=== PATIENT | male | born 1965 ===

== ENCOUNTER 2017-10-16 08:32 | Emergency (ER) | payer SELFPAY ==
[2017-10-16 08:49] VITALS: BP 140/85
--- NOTE | 2017-10-16 09:00 | UC ---
Truncal Trauma HPI - HPI Summary HPI Summary: 52 yo M with thoracic and rt rib pain s/p fall on 10/10/17. He was loading wood and fell onto the wood pile. No LOC. No weakness, numbness. Initially, everything hurt. Over time primarily the rt rib and thoracic back pain continue. Positive splinting. No SOB. Is a smoker. No fever. - History Of Current Complaint Chief Complaint: UCTrauma Stated Complaint: SP FALL/RT SIDE BACK Time Seen by Provider: 10/16/17 08:46 Pain Intensity: 2 - Allergies/Home Medications Allergies/Adverse Reactions: Allergies Allergy/AdvReac Type Severity Reaction Status Date / Time tdap Allergy Unknown Unknown Uncoded 10/16/17 08:49 Reaction Details Home Medications: Home Medications NK [No Home Medications Reported] 10/16/17 [History Confirmed 10/16/17] PMH/Surg Hx/FS Hx/Imm Hx Previously Healthy: Yes - Surgical History Surgical History: Yes Surgery Procedure, Year, and Place: Nodular fastitious - Social History Alcohol Use: Daily Substance Use Type: None Smoking Status (MU): Heavy Every Day Tobacco Smoker Review of Systems Constitutional: Negative Skin: Negative Eyes: Negative ENT: Negative Respiratory: Other - splinting rt chest pain Cardiovascular: Negative Gastrointestinal: Negative Genitourinary: Negative Motor: Negative Neurovascular: Negative Musculoskeletal: Other: - rt rib pain Neurological: Negative Psychological: Negative Is Patient Immunocompromised?: No All Other Systems Reviewed And Are Negative: Yes Physical Exam Triage Information Reviewed: Yes Appearance: Well-Appearing, Other: - Mild pain distress with deep breaths Vital Signs: Initial Vital Signs Temp 98.9 F 10/16/17 08:43 Pulse 67 10/16/17 08:43 Resp 16 10/16/17 08:43 BP 140/85 10/16/17 08:43 Pulse Ox 100 10/16/17 08:43 Vital Signs Reviewed: Yes Eye Exam: Normal Neck exam: Normal Neck: Positive: Supple, Nontender Respiratory: Positive: Lungs clear, Normal breath sounds, Other: - tender to palpation to the right of mid thoracic spine and laterally on the ribs Cardiovascular Exam: Normal Cardiovascular: Positive: RRR Abdominal Exam: Normal Abdomen Description: Positive: Nontender Bowel Sounds: Positive: Present Musculoskeletal Exam: Normal Neurological Exam: Normal Psychological Exam: Normal Skin Exam: Normal Truncal Trauma Course/Dx - Course Course Of Treatment: Discussed results with the patient. He declines pain med Rx. He will use ibuprofen. F/U PMD; recheck sooner if worse. - Differential Dx/Diagnosis Provider Diagnoses: right rib fractures Discharge - Sign-Out/Discharge Documenting (check all that apply): Patient Departure - Discharge Plan Condition: Stable Disposition: HOME Patient Education Materials: Rib Fracture (ED) Forms: *Work Release Referrals: [facility] [Outside] Additional Instructions: FOLLOW UP WITH YOUR DOCTOR. USE THE INCENTIVE SPIROMETER EVERY 4 HOURS WHILE AWAKE TO HELP AVOID RESPIRATORY INFECTION. GET RECHECKED FOR ANY WORSENING OF YOUR CONDITION; PAIN, SHORTNESS OF BREATH, YOU FEEL ILL OR QUESTIONS OR CONCERNS. - Billing Disposition and Condition Condition: STABLE Disposition: Home
--- NOTE | 2017-10-16 09:20 | RAD ---
Indication: Right rib pain. 4 views of the right ribs and dual energy PA views of the chest are reviewed. There are fractures of the right ninth and 10th rib posteriorly. No pneumothorax is noted. Minimal displacement is noted. IMPRESSION: Fractures of the right ninth and 10th ribs with minimal displacement. No pneumothorax is noted.
--- NOTE | 2017-10-16 09:21 | RAD ---
Indication: Mid thoracic spine pain post fall. Comparison: No relevant prior exams available on the [facility] for [place]. Technique: AP and lateral views thoracic spine. Report: Normal thoracic spine alignment. No thoracic spine fracture evident. Multilevel very mild thoracic degenerative spondylosis. Unremarkable paraspinal soft tissue contours. IMPRESSION: #. No radiographic evidence for traumatic thoracic spine injury.
== END 2017-10-16 09:50 | disposition home or self-care (01) ==
LOC: UCCORT 08:32
DX: S22.41XA Multiple fractures of ribs, right side, initial encounter for closed fracture (principal); M54.6 Pain in thoracic spine; Y93.89 Activity, other specified; Y92.9 Unspecified place or not applicable; Z72.0 Tobacco use; W01.198A Fall on same level from slipping, tripping and stumbling with subsequent striking against other object, initial encounter
CPT/HCPCS: 72070; 99201; G0463

== ENCOUNTER 2021-06-29 13:59 | Inpatient (IN) ==
[~2021-06-29 13:59] MED LIST: Buffered Lidocaine 1% SYRIN 1 ml INTRADERM ONE; Lactated Ringers 1000 ml BAG 1,000 ML IV SCH
[2021-06-29] MEDS ORDERED: diPHENhydraMINE 25 mg TAB PO PRN (14:38)
[2021-06-29] MEDS ORDERED: Ondansetron ODT 4 mg TAB 4 MG TAB PO PRN (14:38)
[2021-06-29] MEDS ORDERED: Magnesium Hydroxide LIQ 30 ML UDC PO PRN (14:38)
[2021-06-29] MEDS ORDERED: Lactulose 30 ml UDC PO PRN (14:38)
[2021-06-29] MEDS ORDERED: Ondansetron 4 mg VIAL 2 MG/ML 2 ml VIAL IV PRN (14:38)
[2021-06-29] MEDS ORDERED: diPHENhydraMINE IV 50 MG/ML 1 ml VIAL (BENADRYL) IV PRN (14:38)
[2021-06-29] MEDS ORDERED: Morphine 2 MG/ML SYRINGE IV PRN (14:38)
[2021-06-29] MEDS ORDERED: Clindamycin 900 MG/D5W BAG 0 MG/0 ML BAG IVPB ONE (14:55)
[2021-06-29] MEDS ORDERED: ceFAZolin 2 GM in NS PREMIX 2 GM/100 ML BAG IVPB ONE (15:06)
[2021-06-29] MEDS: Lactated Ringers 1000 ml BAG 1,000 ML IV SCH ×2 (15:17→23:53)
[2021-06-29] MEDS ORDERED: HYDROcodone/ACETAMIN 5/325 mg TAB PO PRN (15:38)
[2021-06-29] MEDS ORDERED: Prochlorperazine 5 mg/ml 2 ml VIAL (10 mg) IV PRN (15:38)
[2021-06-29] MEDS ORDERED: Naloxone 0.4 mg VIAL 0.4 mg/ml 1 ml VIAL IV PRN (15:38)
[2021-06-29] MEDS ORDERED: Levalbuterol 0.63MG/3ML NEB UNIT OF USE INH PRN (15:38)
[2021-06-29] MEDS ORDERED: fentaNYL 100 mcg/2 ml 50 MCG/ML VIAL IV PRN (15:38)
[2021-06-29] MEDS ORDERED: Dexamethasone IV 4 MG/ML VIAL 1 ml VIAL ONE (15:47)
[2021-06-29] MEDS ORDERED: Lidocaine 2% PF 5 ML VIAL ONE (15:47)
[2021-06-29] MEDS ORDERED: Midazolam 2 mg/2 ml VIAL 1 mg/ml 2 ml VIAL (2 mg) ONE (15:47)
[2021-06-29] MEDS ORDERED: Propofol 10 MG/ML 20 ML BTL ONE (15:47)
[2021-06-29] MEDS ORDERED: fentaNYL 100 mcg/2 ml 50 MCG/ML VIAL ONE ×4 (15:47→18:36)
[2021-06-29] MEDS ORDERED: Bupivacaine 0.5% SDV PF 30ML VIAL ONE (16:14)
[2021-06-29] MEDS ORDERED: Vancomycin 1,000 MG VIAL ONE (16:14)
[2021-06-29] MEDS ORDERED: Vancomycin per Pharmacy 1 EA NOTE FOLLOW UP PRN (16:36)
[2021-06-29] MEDS ORDERED: Ondansetron 4 mg VIAL 2 MG/ML 2 ml VIAL ONE (16:51)
[2021-06-29] MEDS ORDERED: Vancomycin 1,500 MG in NS 0.9% 250 ml 250 ML IVPB SCH (17:00)
[2021-06-29] MEDS ORDERED: Vancomycin 1,250 MG IV x ONCE IVPB ONE (17:00)
[2021-06-29] MEDS: Magnesium Hydroxide LIQ 30 ML UDC PO SCH (20:45)
[2021-06-29] MEDS: cefTRIAXone 2 GM ADDV.VIAL 2 GM in NS 0.9% 100 ml BAG 100 ML IV SCH (23:05)
[2021-06-29 23:30] LABS: Calcium 8.7 mg/dL (8.6-10.3); eGFR CKD-EPI 106.1 (>60)
[2021-06-29 23:32] LABS: Potassium 5.1 mmol/L (3.5-5.0)
[2021-06-30] MEDS: Vancomycin 1000 MG in NS 0.9% 250 ML IVPB SCH ×3 (05:39→23:06)
[2021-06-30 07:02] LABS: Hematocrit 36 % (42-52); Hemoglobin 12.5 g/dL (14.0-18.0); Mean Platelet Volume 6.7 fL (7.4-10.4); Platelet Count 465 10^3/uL (150-450)
[2021-06-30 07:26] LABS: Calcium 8.6 mg/dL (8.6-10.3); eGFR CKD-EPI 106.1 (>60)
[2021-06-30] MEDS: Vitamin THERAPEUTIC TAB PO SCH (09:08)
[2021-06-30] MEDS: Magnesium Hydroxide LIQ 30 ML UDC PO SCH ×2 (09:08→20:06)
[2021-06-30] MEDS: cefTRIAXone 2 GM ADDV.VIAL 2 GM in NS 0.9% 100 ml BAG 100 ML IV SCH (19:51)
[2021-07-01 05:47] LABS: Hematocrit 34 % (42-52); Hemoglobin 11.5 g/dL (14.0-18.0); Mean Platelet Volume 6.2 fL (7.4-10.4); Platelet Count 398 10^3/uL (150-450)
[2021-07-01] MEDS: Vancomycin 1000 MG in NS 0.9% 250 ML IVPB SCH ×2 (06:00→15:06)
[2021-07-01] MEDS ORDERED: Vancomycin Trough Check NOTE FOLLOW UP ONE (06:00)
[2021-07-01 06:05] LABS: Vancomycin Trough 15.8 mcg/mL; eGFR CKD-EPI 107.5 (>60)
[2021-07-01] MEDS: Magnesium Hydroxide LIQ 30 ML UDC PO SCH ×2 (09:11→20:31)
[2021-07-01 09:21] LABS: Calcium 8.4 mg/dL (8.6-10.3); Potassium 4.5 mmol/L (3.5-5.0)
[2021-07-01] MEDS: Vitamin THERAPEUTIC TAB PO SCH (09:51)
[2021-07-01] MEDS: ceFAZolin 2 GM in NS PREMIX 2 GM/100 ML BAG IVPB SCH (20:23)
[2021-07-02] MEDS: ceFAZolin 2 GM in NS PREMIX 2 GM/100 ML BAG IVPB SCH ×2 (03:37→12:49)
[2021-07-02 06:50] LABS: Hematocrit 36 % (42-52); Mean Platelet Volume 6.6 fL (7.4-10.4); Platelet Count 406 10^3/uL (150-450)
[2021-07-02] MEDS: Magnesium Hydroxide LIQ 30 ML UDC PO SCH (08:16)
[2021-07-02] MEDS: Vitamin THERAPEUTIC TAB PO SCH (09:04)
[2021-07-02 15:28] VITALS: BP 143/104
== END 2021-07-02 17:50 | disposition home health service (06) | DRG 314 ==
LOC: OR 13:59 → MED 13:59
PROVIDERS: ADMIT Orthopaedic Surgery; ATTEND Orthopaedic Surgery